=== PATIENT | male | born 1960 | race Caucasian/White ===

== ENCOUNTER 2023-06-03 05:04 | Inpatient (IN) | payer MEDICARE, MEDICAID ==
[~2023-06-03] VITALS: Ht 177.8 cm; Wt 101.2 kg
[2023-06-03] VITALS (18 sets, daily range): BP systolic 98–115; BP diastolic 54–75; PULSE 94–134; RESP 18–30; TEMP 98–98.6; O2SAT 92–100
[~2023-06-03 05:04] MED LIST: ADV50100 IH; ALBU6.7H3 IH; ATOR20TA PO; CYCL-394 PO; DICY10CA88 PO; DULO-31 PO; GABA-338 PO; LORA1TAB PO; NORCO10T PO; OMEP-84 PO; TEST200V33 IM; ZOF4T PO; [UNRECOGNIZED DRUG - CODE] PO
[2023-06-03] MEDS: diltiazem 5mg/ml 5ml inj. IV ONE ×2 (05:14→05:27)
[2023-06-03] MEDS ORDERED: diltiazem 5mg/ml 5ml inj. IV ONE (05:15)
[2023-06-03 05:17] LABS: ABG BASE EXCESS 0.5 mmol/L (-2.0-2.0); ABG HCO3 24.3 mmol/L (22.0-26.0); ABG OXYGEN SATURATION 99.3 % (94-97); ABG PCO2 (T) 37.3 mmHg (35.0-48.0); ABG PH (T) 7.433 (7.340-7.440); ABG PO2 (T) 238.7 mmHg (75.0-100.0); ALLEN'S TEST Modified; FCOHb 0.3 % (0.0-3.9); FHHb 0.7 % (0.0-5.0); FMetHb 0.6 % (0.0-1.5); FO2Hb 98.4 % (94-97); MODE Bipap; PATIENT TEMPERATURE 37.1; RESPIRATORY RATE 10 b/min
[2023-06-03] MEDS: ipratropium 0.5 MG/2.5ML nebule IH ONE (05:23)
[2023-06-03] MEDS: albuterol 2.5 MG/3 ML nebule CONTNEB PRN (05:23)
[2023-06-03] MEDS: succinylcholine 20mg/ml inj IV ONE ×2 (05:24→05:25)
[2023-06-03] MEDS: methylPREDNISolone sod succ 125mg/2ml vial IV ONE (05:31)
[2023-06-03] MEDS: CefTRIAXone 2gm/D5W 50ml BAG 50 ML IV ONE (05:31)
[2023-06-03] MEDS: azithromycin/NS 500mg/250ml 250 ML IV ONE (05:35)
[2023-06-03 05:42] LABS: ALANINE AMINOTRANSFERASE 23 U/L (12-78); ALBUMIN 2.6 G/DL (3.4-5.0); ALKALINE PHOSPHATASE 81 IU/L (46-116); ANION GAP 10 (8-16); BLOOD UREA NITROGEN 17 MG/DL (7-18); BUN/CREATININE RATIO 12.6 (10.0-20.0); CALCIUM 8.6 MG/DL (8.5-10.1); CHLORIDE 96 MMOL/L (99-107); CREATININE 1.35 MG/DL (0.60-1.10); POTASSIUM 4.5 MMOL/L (3.5-5.1); SODIUM 133 MMOL/L (135-145); TOTAL CARBON DIOXIDE 27.5 MMOL/L (24-32); eCRCL 58 ML/MIN; eGFR 53 ML/MIN
[2023-06-03 05:47] LABS: APTT 35 SECONDS (22-32); D-DIMER 3.49 MG/L FEU (0-0.50); INR 1.9 INR; MEAN CORPUSCULAR HEMOGLOBIN 26.2 PG (27.0-31.0); MEAN CORPUSCULAR HGB CONC 32.2 g/dL (33.0-36.5); PROTHROMBIN TIME 19.1 SECONDS (9.0-12.0); WHITE BLOOD COUNT 18.7 X10'3 (4.5-11.0)
[2023-06-03 05:49] LABS: HEMATOCRIT 57.3 % (42.0-52.0); MEAN CORPUSCULAR VOLUME 81.5 FL (78-98); MEAN PLATELET VOLUME 7.2 FL (7.4-10.4); PLATELET COUNT 391 X10'3 (140-440); RED BLOOD COUNT 7.04 X10'6 (4.70-6.10); RED CELL DISTRIBUTION WIDTH 19.9 % (11.5-14.5)
[2023-06-03 05:51] LABS: PRO BRAIN NATRIURETIC PEPTIDE 923 PG/ML (0-125)
[2023-06-03 05:54] LABS: ALBUMIN/GLOBULIN RATIO 0.4 (1.1-1.5); ASPARTATE AMINO TRANSFERASE 19 U/L (10-37); GLUCOSE 117 MG/DL (70-104); TOTAL PROTEIN 8.5 G/DL (6.4-8.2)
[2023-06-03] MEDS ORDERED: iohexol 350MG/ML 100ml bottle IV ONE (06:07)
[2023-06-03 06:08] LABS: HEMOGLOBIN 18.4 g/dl (14.0-17.9)
[2023-06-03] MEDS: aspirin 325mg tablet PO ONE (06:29)
[2023-06-03] MEDS: nitroGLYCERIN 1gm ointment UD TP ONE (06:30)
[2023-06-03 06:44] LABS: ANISOCYTOSIS 2+; LARGE PLATELETS FEW; PLATELET ESTIMATE NORMAL; TOTAL CELLS COUNTED 100
[2023-06-03] MEDS: ringers solution, lacted 1,000 ML IV ONE (06:52)
[2023-06-03] MEDS ORDERED: mag hydrox/Alum hydrox/simeth 30ml oral suspension PO PRN (08:35)
[2023-06-03] MEDS ORDERED: potassium Cl 20 mEq SR tablet PO PRN ×2 (08:35)
[2023-06-03] MEDS ORDERED: magnesium Cl slow-release 64mg tablet PO PRN (08:35)
[2023-06-03] MEDS ORDERED: ondansetron/PF 4mg/2ml inj IV PRN (08:35)
[2023-06-03] MEDS ORDERED: potassium Cl 40MEQ/1/2NS 520ml 520 ML IV PRN (08:35)
[2023-06-03] MEDS ORDERED: HYDROcodone/acetaminophen 5mg/325mg tablet PO PRN (08:35)
[2023-06-03] MEDS ORDERED: magnesium 2GM in 50ml NS 50 ML IV PRN (08:35)
[2023-06-03] MEDS ORDERED: HYDROcodone/acetaminophen 10/325mg tab PO PRN (08:35)
[2023-06-03] MEDS ORDERED: acetaminophen 325mg tablet PO PRN (08:35)
[2023-06-03] MEDS ORDERED: magnesium 4gm in 100ml NS 100 ML IV PRN (08:35)
[2023-06-03] MEDS ORDERED: magnesium hydroxide 30ml (MOM) UD suspension PO PRN (08:35)
[2023-06-03 09:10] LABS: HEMOGLOBIN A1C 5.9 % (4.5-6.2)
[2023-06-03] MEDS: normal saline 1000ml 1,000 ML IV SCH (09:26)
[2023-06-03 09:32] LABS: MAGNESIUM 1.8 MG/DL (1.5-2.4); POTASSIUM 4.1 MMOL/L (3.5-5.1)
[2023-06-03] MEDS ORDERED: etomidate 2mg/ml inj. ONE (13:00)
[2023-06-03] MEDS: methylPREDNISolone sod succ 125mg/2ml vial IV SCH (13:23)
[2023-06-03] MEDS: ipratropium/albuterol 3ml nebule NEB SCH (14:50)
[2023-06-03] MEDS ORDERED: LEVO50TA8 PO (16:54)
[2023-06-03] MEDS ORDERED: ATOR20TA66 PO (16:54)
[2023-06-03] MEDS ORDERED: GABA300C PO (16:54)
[2023-06-03] MEDS ORDERED: ALBU18HF2 PO (16:54)
[2023-06-03] MEDS ORDERED: FLO0.4C PO (16:54)
[2023-06-03] MEDS ORDERED: OMEP40CA21 PO (16:54)
[2023-06-03] MEDS ORDERED: FLUT1BLS4 INH (16:54)
[2023-06-03] MEDS: docusate sod 100mg capsule PO SCH (19:35)
[2023-06-03] MEDS: heparin, porcine 5000 units/ml vial SQ SCH (19:37)
[2023-06-03] MEDS: K and/or MAG REPLACEMENT MC SCH (20:00)
[2023-06-04] VITALS (22 sets, daily range): BP systolic 104–171; BP diastolic 63–91; PULSE 80–116; RESP 18–22; TEMP 97.1–98.3; O2SAT 89–97
[2023-06-04] MEDS: azithromycin/NS 500mg/250ml 250 ML IV SCH (07:50)
[2023-06-04] MEDS: CefTRIAXone/D5W-Rocephin 1gm 50 ML IV SCH (07:50)
[2023-06-04 08:36] LABS: BASOPHILS % (AUTO) 0.1 % (0-1); EOSINOPHILS % (AUTO) 0 % (0-6); HEMOGLOBIN 16.5 g/dl (14.0-17.9); LYMPHOCYTES % (AUTO) 4.3 % (21-51); MEAN CORPUSCULAR HEMOGLOBIN 26.2 PG (27.0-31.0); MEAN CORPUSCULAR HGB CONC 32.3 g/dL (33.0-36.5); MEAN CORPUSCULAR VOLUME 81.3 FL (78-98); MEAN PLATELET VOLUME 6.9 FL (7.4-10.4); MONOCYTES # (AUTO) 0.6 X10'3 (0-0.9); MONOCYTES % (AUTO) 2.5 % (2-12); NEUTROPHILS # (AUTO) 20.6 X10'3 (1.8-7.7); NEUTROPHILS % (AUTO) 93.1 % (42-75); PLATELET COUNT 381 X10'3 (140-440); RED BLOOD COUNT 6.27 X10'6 (4.70-6.10); RED CELL DISTRIBUTION WIDTH 19.9 % (11.5-14.5); WHITE BLOOD COUNT 22.1 X10'3 (4.5-11.0)
[2023-06-04 09:16] LABS: ALANINE AMINOTRANSFERASE 28 U/L (12-78); ALBUMIN 2.1 G/DL (3.4-5.0); ALKALINE PHOSPHATASE 75 IU/L (46-116); ANION GAP 5 (8-16); BLOOD UREA NITROGEN 30 MG/DL (7-18); CHLORIDE 102 MMOL/L (99-107); CREATININE 1.11 MG/DL (0.60-1.10); HDL CHOLESTEROL 25 MG/DL (35-60); LDL CHOLESTEROL 81 MG/DL (50-100); MAGNESIUM 2.4 MG/DL (1.5-2.4); POTASSIUM 4.6 MMOL/L (3.5-5.1); SODIUM 138 MMOL/L (135-145); TOTAL CARBON DIOXIDE 30.6 MMOL/L (24-32); TRIGLYCERIDES 90 MG/DL (20-135); eCRCL 70 ML/MIN; eGFR 67 ML/MIN
[2023-06-04 09:52] LABS: ALBUMIN/GLOBULIN RATIO 0.4 (1.1-1.5); ASPARTATE AMINO TRANSFERASE 27 U/L (10-37); BILIRUBIN,TOTAL 0.3 MG/DL (0.1-1.0); CALCIUM 8.3 MG/DL (8.5-10.1); CHOL/HDL RATIO 6.6 (0.00-4.99); CHOLESTEROL 165 MG/DL (0-200); GLUCOSE 128 MG/DL (70-104); PHOSPHORUS 2.4 MG/DL (2.3-4.5); TOTAL PROTEIN 7.5 G/DL (6.4-8.2)
[2023-06-04] MEDS: pantoprazole 40mg Tablet.DR PO SCH (09:53)
[2023-06-04] MEDS: atorvastatin 20mg tablet PO SCH (09:53)
[2023-06-04] MEDS: nicotine 14mg patch - 24hr TD SCH (09:53)
[2023-06-04] MEDS: tamsulosin 0.4mg capsule PO SCH (09:53)
[2023-06-04] MEDS: duloxetine 30mg CAPSULE.DR PO SCH (09:54)
[2023-06-04] MEDS: gabapentin 300mg capsule PO SCH (13:33)
[2023-06-05] VITALS (18 sets, daily range): BP systolic 102–110; BP diastolic 58–69; PULSE 90–106; RESP 16–20; TEMP 96.1–98; O2SAT 91–99
[2023-06-05 08:12] LABS: BASOPHILS % (AUTO) 0.1 % (0-1); EOSINOPHILS % (AUTO) 0 % (0-6); HEMATOCRIT 49.3 % (42.0-52.0); HEMOGLOBIN 15.6 g/dl (14.0-17.9); LYMPHOCYTES # (AUTO) 0.8 X10'3 (1.1-4.8); LYMPHOCYTES % (AUTO) 3.8 % (21-51); MEAN CORPUSCULAR HEMOGLOBIN 25.9 PG (27.0-31.0); MEAN CORPUSCULAR HGB CONC 31.7 g/dL (33.0-36.5); MEAN CORPUSCULAR VOLUME 81.5 FL (78-98); MEAN PLATELET VOLUME 6.9 FL (7.4-10.4); MONOCYTES # (AUTO) 0.7 X10'3 (0-0.9); MONOCYTES % (AUTO) 3.8 % (2-12); NEUTROPHILS % (AUTO) 92.3 % (42-75); PLATELET COUNT 404 X10'3 (140-440); RED BLOOD COUNT 6.05 X10'6 (4.70-6.10); RED CELL DISTRIBUTION WIDTH 19.9 % (11.5-14.5); WHITE BLOOD COUNT 19.5 X10'3 (4.5-11.0)
[2023-06-05 08:29] LABS: ALANINE AMINOTRANSFERASE 30 U/L (12-78); ALBUMIN 2.2 G/DL (3.4-5.0); ALKALINE PHOSPHATASE 68 IU/L (46-116); ANION GAP 6 (8-16); BLOOD UREA NITROGEN 30 MG/DL (7-18); BUN/CREATININE RATIO 28.6 (10.0-20.0); CHLORIDE 105 MMOL/L (99-107); CREATININE 1.05 MG/DL (0.60-1.10); MAGNESIUM 2.5 MG/DL (1.5-2.4); POTASSIUM 4.6 MMOL/L (3.5-5.1); SODIUM 141 MMOL/L (135-145); TOTAL CARBON DIOXIDE 30.5 MMOL/L (24-32); eCRCL 74 ML/MIN; eGFR 71 ML/MIN
[2023-06-05 08:33] LABS: ALBUMIN/GLOBULIN RATIO 0.4 (1.1-1.5); ASPARTATE AMINO TRANSFERASE 19 U/L (10-37); BILIRUBIN,TOTAL 0.3 MG/DL (0.1-1.0); GLUCOSE 114 MG/DL (70-104); TOTAL PROTEIN 7.3 G/DL (6.4-8.2)
[2023-06-05] MEDS: normal saline 1000ml 1,000 ML IV SCH (08:55)
[2023-06-05] MEDS: CefTRIAXone 2gm/D5W 50ml BAG 50 ML IV SCH (09:10)
[2023-06-05] MEDS: methylPREDNISolone sod succ/PF 40mg inj. IV SCH (09:19)
[2023-06-05] MEDS: levoTHYROXINE 25mcg tablet PO SCH (09:36)
[2023-06-06] VITALS (20 sets, daily range): BP systolic 102–132; BP diastolic 67–83; PULSE 72–110; RESP 11–20; TEMP 97.4–98.1; O2SAT 87–97
[2023-06-06 07:42] LABS: BASOPHILS % (AUTO) 0.1 % (0-1); EOSINOPHILS % (AUTO) 0 % (0-6); HEMATOCRIT 47.2 % (42.0-52.0); LYMPHOCYTES # (AUTO) 0.7 X10'3 (1.1-4.8); LYMPHOCYTES % (AUTO) 6.3 % (21-51); MEAN CORPUSCULAR HEMOGLOBIN 25.9 PG (27.0-31.0); MEAN CORPUSCULAR HGB CONC 31.8 g/dL (33.0-36.5); MEAN CORPUSCULAR VOLUME 81.2 FL (78-98); MONOCYTES # (AUTO) 0.6 X10'3 (0-0.9); MONOCYTES % (AUTO) 5.6 % (2-12); PLATELET COUNT 378 X10'3 (140-440); RED BLOOD COUNT 5.81 X10'6 (4.70-6.10); RED CELL DISTRIBUTION WIDTH 19.8 % (11.5-14.5); WHITE BLOOD COUNT 11.3 X10'3 (4.5-11.0)
[2023-06-06 08:18] LABS: ALANINE AMINOTRANSFERASE 34 U/L (12-78); ALBUMIN 2.1 G/DL (3.4-5.0); ALKALINE PHOSPHATASE 67 IU/L (46-116); ANION GAP 3 (8-16); BLOOD UREA NITROGEN 27 MG/DL (7-18); BUN/CREATININE RATIO 28.4 (10.0-20.0); CHLORIDE 107 MMOL/L (99-107); CREATININE 0.95 MG/DL (0.60-1.10); MAGNESIUM 2.5 MG/DL (1.5-2.4); SODIUM 141 MMOL/L (135-145); TOTAL CARBON DIOXIDE 31.5 MMOL/L (24-32); eCRCL 82 ML/MIN; eGFR 80 ML/MIN
[2023-06-06 08:21] LABS: ANISOCYTOSIS 2+; PLATELET ESTIMATE NORMAL
[2023-06-06 08:22] LABS: TARGET CELLS FEW
[2023-06-06 08:30] LABS: ALBUMIN/GLOBULIN RATIO 0.4 (1.1-1.5); ASPARTATE AMINO TRANSFERASE 18 U/L (10-37); BILIRUBIN,TOTAL 0.3 MG/DL (0.1-1.0); CALCIUM 7.7 MG/DL (8.5-10.1); GLUCOSE 103 MG/DL (70-104); PHOSPHORUS 3.4 MG/DL (2.3-4.5)
[2023-06-06 15:36] LABS: THYROID STIMULATING HORMONE 0.48 ulU/ml (0.34-4.50)
[2023-06-07] VITALS (10 sets, daily range): BP systolic 113–152; BP diastolic 70–81; PULSE 86–114; RESP 16–24; TEMP 97.3–98.2; O2SAT 92–96
[2023-06-07 07:57] LABS: BASOPHILS % (AUTO) 0.1 % (0-1); EOSINOPHILS % (AUTO) 0 % (0-6); HEMATOCRIT 47.9 % (42.0-52.0); HEMOGLOBIN 15.2 g/dl (14.0-17.9); LYMPHOCYTES # (AUTO) 0.9 X10'3 (1.1-4.8); LYMPHOCYTES % (AUTO) 9.4 % (21-51); MEAN CORPUSCULAR HGB CONC 31.8 g/dL (33.0-36.5); MEAN CORPUSCULAR VOLUME 81.7 FL (78-98); MEAN PLATELET VOLUME 7.2 FL (7.4-10.4); MONOCYTES # (AUTO) 0.7 X10'3 (0-0.9); MONOCYTES % (AUTO) 7.8 % (2-12); NEUTROPHILS # (AUTO) 7.8 X10'3 (1.8-7.7); NEUTROPHILS % (AUTO) 82.7 % (42-75); PLATELET COUNT 330 X10'3 (140-440); RED BLOOD COUNT 5.86 X10'6 (4.70-6.10); WHITE BLOOD COUNT 9.5 X10'3 (4.5-11.0)
[2023-06-07 08:23] LABS: PLATELET ESTIMATE NORMAL; TOTAL CELLS COUNTED 100
[2023-06-07 08:24] LABS: ALANINE AMINOTRANSFERASE 45 U/L (12-78); ALBUMIN 2.2 G/DL (3.4-5.0); ALBUMIN/GLOBULIN RATIO 0.5 (1.1-1.5); ALKALINE PHOSPHATASE 63 IU/L (46-116); ANION GAP 6 (8-16); ANISOCYTOSIS 2+; ASPARTATE AMINO TRANSFERASE 23 U/L (10-37); BILIRUBIN,TOTAL 0.4 MG/DL (0.1-1.0); BLOOD UREA NITROGEN 26 MG/DL (7-18); BUN/CREATININE RATIO 29.9 (10.0-20.0); CALCIUM 7.7 MG/DL (8.5-10.1); CHLORIDE 106 MMOL/L (99-107); CREATININE 0.87 MG/DL (0.60-1.10); GLUCOSE 85 MG/DL (70-104); MAGNESIUM 2.7 MG/DL (1.5-2.4); PHOSPHORUS 3.4 MG/DL (2.3-4.5); POIKILOCYTOSIS 1+; POTASSIUM 5.5 MMOL/L (3.5-5.1); SODIUM 140 MMOL/L (135-145); TOTAL CARBON DIOXIDE 28.1 MMOL/L (24-32); TOTAL PROTEIN 6.9 G/DL (6.4-8.2); eCRCL 90 ML/MIN; eGFR 89 ML/MIN
[2023-06-07] MEDS: albuterol 2.5 MG/3 ML nebule CONTNEB ONE (11:29)
[2023-06-07 12:12] LABS: ALBUMIN 2.3 G/DL (3.4-5.0); ANION GAP 4 (8-16); BLOOD UREA NITROGEN 27 MG/DL (7-18); BUN/CREATININE RATIO 27.8 (10.0-20.0); CALCIUM 8.2 MG/DL (8.5-10.1); CHLORIDE 105 MMOL/L (99-107); CREATININE 0.97 MG/DL (0.60-1.10); POTASSIUM 4.8 MMOL/L (3.5-5.1); SODIUM 140 MMOL/L (135-145); TOTAL CARBON DIOXIDE 30.9 MMOL/L (24-32); eCRCL 80 ML/MIN; eGFR 78 ML/MIN
[2023-06-07 12:15] LABS: GLUCOSE 104 MG/DL (70-104)
[2023-06-07] MEDS: dextrose 50%-water 50ml dispensing syringe IV ONE (12:58)
[2023-06-07] MEDS: insulin regular, human 10 units/0.1 ml syringe IV ONE (13:14)
[2023-06-07] MEDS ORDERED: PRED20TA PO (13:26)
[2023-06-07] MEDS ORDERED: CEFD300C3 PO (13:26)
[2023-06-07] MEDS ORDERED: NICO-631 TD (13:26)
== END 2023-06-07 16:29 | disposition home or self-care (01) | DRG 871 ==
LOC: ER 05:04 → ED HOLD 08:41 → PCU 3S 17:03
PROVIDERS: ADMIT Family Medicine; ATTEND Family Medicine
PROC: B32T1ZZ Computerized Tomography (CT Scan) of Left Pulmonary Artery using Low Osmolar Contrast (ICD-10-PCS; principal; 2023-06-03)
PROC: B3201ZZ Computerized Tomography (CT Scan) of Thoracic Aorta using Low Osmolar Contrast (ICD-10-PCS; 2023-06-03)
PROC: B32S1ZZ Computerized Tomography (CT Scan) of Right Pulmonary Artery using Low Osmolar Contrast (ICD-10-PCS; 2023-06-03)
PROC: 5A09357 Assistance with Respiratory Ventilation, Less than 24 Consecutive Hours, Continuous Positive Airway Pressure (ICD-10-PCS; 2023-06-03)
DX: A41.9 Sepsis, unspecified organism (principal); J18.1 Lobar pneumonia, unspecified organism; J96.21 Acute and chronic respiratory failure with hypoxia; J44.1 Chronic obstructive pulmonary disease with (acute) exacerbation; J44.0 Chronic obstructive pulmonary disease with (acute) lower respiratory infection; J90 Pleural effusion, not elsewhere classified; D75.1 Secondary polycythemia; R65.20 Severe sepsis without septic shock; Z20.822 Contact with and (suspected) exposure to COVID-19; N40.0 Benign prostatic hyperplasia without lower urinary tract symptoms; I48.0 Paroxysmal atrial fibrillation; F17.210 Nicotine dependence, cigarettes, uncomplicated; Z79.899 Other long term (current) drug therapy; Z88.8 Allergy status to other drugs, medicaments and biological substances
CPT/HCPCS: 36415; 36600; 71045; 71275; 80048; 80053; 80061; 82803; 82948; 83036; 83605; 83735; 83880; 84100; 84132; 84145; 84443; 84484; 85007; 85008; 85018; 85025; 85379; 85610; 85730; 87040; 87070; 87502; 87503; 87634; 87811; 93005; 93306; 94640; 94660; 94664; 94668; 94760; 97110; 97116; 97161; 97530; 99291; A4615; A6258; A7015; G0378; J0330; J0456; J0696; J1644; J1815; J2920; J2930; J3490; J7030; J7040; J7120; Q9967